=== PATIENT | female | born 1970 | race Caucasian/White ===

== ENCOUNTER 2022-03-25 13:37 | Emergency (ER) | payer SELFPAY ==
[~2022-03-25] VITALS: Ht 170.2 cm; Wt 83.9 kg
== END 2022-03-25 16:57 | disposition home or self-care (01) ==
LOC: ER 16:05
DX: R21 Rash and other nonspecific skin eruption (principal)
CPT/HCPCS: 99283

== ENCOUNTER 2022-07-27 10:24 | Inpatient (IN) | payer SELFPAY ==
[~2022-07-27] VITALS: Ht 170.2 cm; Wt 83.9 kg
[2022-07-27] MEDS ORDERED: SODIUM CHLORIDE 0.9% 1000ML 1,000 ML IV ONE (11:00)
[2022-07-27] MEDS ORDERED: FAMOTIDINE 20 MG/2 ML VIAL IV STA (11:00)
[2022-07-27] MEDS ORDERED: ONDANSETRON HCL INJ 2MG/ML 2ML 2 MG/ML VIAL IV STA (11:00)
[2022-07-27] MEDS ORDERED: ONDANSETRON HCL INJ 2MG/ML 2ML 2 MG/ML VIAL ONE (11:09)
[2022-07-27] MEDS ORDERED: SODIUM CHLORIDE 0.9% 1000ML 1,000 ML ONE (11:09)
[2022-07-27] MEDS ORDERED: FAMOTIDINE 20 MG/2 ML VIAL IV ONE (11:10)
[2022-07-27] MEDS ORDERED: ACYCLOVIR SODIUM 800 MG in SODIUM CHLORIDE 0.9% 250ML 250 ML IV SCH (11:45)
[2022-07-27] MEDS ORDERED: SODIUM CHLORIDE FLUSH 10 ML SYR INJ PRN (12:00)
[2022-07-27] MEDS ORDERED: ONDANSETRON HCL INJ 2MG/ML 2ML 2 MG/ML VIAL IV PRN (12:00)
[2022-07-27] MEDS ORDERED: SODIUM CHLORIDE 0.9% 100 ML ONE (12:14)
[2022-07-27] MEDS ORDERED: PIPERACILLIN/TAZOBACTAM 3.375 GM VIAL ONE (12:14)
[2022-07-27] MEDS ORDERED: CLONIDINE HCL 0.2 MG TAB PO ONE (12:15)
[2022-07-27] MEDS ORDERED: CLONIDINE HCL 0.1 MG TAB ONE (12:18)
[2022-07-27 13:01] VITALS: BP 132/101
[2022-07-27] MEDS ORDERED: ACETAMINOPHEN 325 MG TAB PO PRN (13:30)
[2022-07-27] MEDS ORDERED: DOCUSATE SODIUM 100 MG CAP PO PRN (13:30)
[2022-07-27] MEDS ORDERED: CLINDAMYCIN 600MG / 50ML 50 ML IV ONE (14:45)
[2022-07-27] MEDS: ACYCLOVIR SODIUM 800 MG in SODIUM CHLORIDE 0.9% 250ML 250 ML IV SCH ×2 (15:00→21:28)
[2022-07-27] MEDS ORDERED: SODIUM CHLORIDE 0.9% 250ML 250 ML ONE (15:09)
[2022-07-27 16:02] VITALS: BP 133/113
[2022-07-27 16:10] VITALS: BP 133/113
[2022-07-27] MEDS: ACETAMINOPHEN 325 MG TAB PO PRN ×2 (16:45→21:28)
[2022-07-27 16:57] LABS: HIV 1&2 AB SCREEN NON-REACTIVE (NONREACTIVE)
[2022-07-27 20:00] VITALS: BP 131/98
[2022-07-27 20:40] VITALS: BP 131/98
[2022-07-27] MEDS ORDERED: TRAMADOL HCL 50 MG TAB PO PRN (23:45)
[2022-07-28] VITALS (7 sets, daily range): BP systolic 114–153; BP diastolic 70–108
[2022-07-28] MEDS: LORATADINE 10 MG TAB PO SCH ×2 (00:29→09:12)
[2022-07-28] MEDS: GABAPENTIN 100 MG CAP PO SCH ×4 (00:29→20:51)
[2022-07-28] MEDS: METHYLPREDNISOLONE SOD SUCC 40 MG/ML VIAL 1ML IV SCH ×3 (00:30→20:50)
[2022-07-28] MEDS: ACYCLOVIR SODIUM 800 MG in SODIUM CHLORIDE 0.9% 250ML 250 ML IV SCH ×3 (03:54→20:51)
[2022-07-28] MEDS: Morphine 4mg INJECTION 4 MG/ML INJ IV PRN ×4 (04:01→19:42)
[2022-07-28 05:04] LABS: BASOPHILS % 0.4 % (0.0-1.0); EOSINOPHILS % 0.6 % (0.0-6.0); HEMATOCRIT 32.4 % (34.2-44.1); HEMOGLOBIN 10.5 g/dL (12.0-16.0); LYMPHOCYTES # (AUTO) 0.6 (1.0-3.2); LYMPHOCYTES % 8.6 % (18.0-39.1); MEAN CORPUSCULAR HEMOGLOBIN 29.6 pg (28-32); MEAN CORPUSCULAR HGB CONC 32.4 g/dL (31-35); MEAN CORPUSCULAR VOLUME 91.3 fL (81-99); MONOCYTES # (AUTO) 0.2 (0.2-0.8); MONOCYTES % 2.4 % (4.4-11.3); NEUTROPHILS # (AUTO) 6.2 (2.1-6.9); NEUTROPHILS % 87.4 % (38.7-80.0); PLATELET COUNT 316 x10e3/uL (140-360); RED BLOOD COUNT 3.55 x10e6/uL (3.6-5.1)
[2022-07-28 05:29] LABS: ANION GAP 14.8 mmol/L (8-16); CALCIUM 8.7 mg/dL (8.4-10.2); CREATININE, SERUM 1.21 mg/dL (0.57-1.11); MAGNESIUM 2.3 MG/DL (1.3-2.1); PHOSPHORUS 2.7 MG/DL (2.3-4.7); POTASSIUM 4.8 mmol/L (3.5-5.1)
[2022-07-28] MEDS ORDERED: CLINDAMYCIN PHOS 900MG/ 50ML 50 ML IV SCH ×2 (14:00→16:00)
[2022-07-28] MEDS: CLINDAMYCIN PHOS 900MG/ 50ML 50 ML IV SCH ×2 (16:00→23:04)
[2022-07-28] MEDS ORDERED: CALAMINE LOTION 4 OZ BOTTLE TP SCH (21:00)
[2022-07-29] VITALS: BP 132/98
[2022-07-29] MEDS: ACYCLOVIR SODIUM 800 MG in SODIUM CHLORIDE 0.9% 250ML 250 ML IV SCH ×3 (03:09→19:40)
[2022-07-29] MEDS: Morphine 4mg INJECTION 4 MG/ML INJ IV PRN ×2 (03:11→08:18)
[2022-07-29 04:20] VITALS: BP 130/101
[2022-07-29 04:56] LABS: BASOPHILS % 0.3 % (0.0-1.0); EOSINOPHILS % 0.1 % (0.0-6.0); HEMATOCRIT 32.4 % (34.2-44.1); HEMOGLOBIN 10.5 g/dL (12.0-16.0); LYMPHOCYTES # (AUTO) 1.2 (1.0-3.2); LYMPHOCYTES % 11.1 % (18.0-39.1); MEAN CORPUSCULAR HEMOGLOBIN 29.6 pg (28-32); MEAN CORPUSCULAR HGB CONC 32.4 g/dL (31-35); MEAN CORPUSCULAR VOLUME 91.3 fL (81-99); MONOCYTES # (AUTO) 0.3 (0.2-0.8); MONOCYTES % 2.9 % (4.4-11.3); NEUTROPHILS % 84.6 % (38.7-80.0); PLATELET COUNT 341 x10e3/uL (140-360); RED BLOOD COUNT 3.55 x10e6/uL (3.6-5.1); RED CELL DISTRIBUTION WIDTH 16.4 % (11.7-14.4)
[2022-07-29 05:11] LABS: ANION GAP 14.8 mmol/L (8-16); CALCIUM 8.8 mg/dL (8.4-10.2); CREATININE, SERUM 1.09 mg/dL (0.57-1.11); MAGNESIUM 2.5 MG/DL (1.3-2.1); PHOSPHORUS 3.2 MG/DL (2.3-4.7); POTASSIUM 4.8 mmol/L (3.5-5.1)
[2022-07-29] MEDS: GABAPENTIN 100 MG CAP PO SCH ×3 (05:16→20:49)
[2022-07-29 08:00] VITALS: BP 130/101
[2022-07-29] MEDS: CLINDAMYCIN PHOS 900MG/ 50ML 50 ML IV SCH ×3 (08:18→23:16)
[2022-07-29] MEDS: LORATADINE 10 MG TAB PO SCH (08:18)
[2022-07-29] MEDS: METHYLPREDNISOLONE SOD SUCC 40 MG/ML VIAL 1ML IV SCH ×2 (08:18→20:48)
[2022-07-29] MEDS ORDERED: LIDOCAINE HCL 1% LOCAL INJ 20 ML VIAL INJ ONE (10:30)
[2022-07-29] MEDS ORDERED: HYDROMORPHONE 1MG/1ML INJ ONE (10:54)
[2022-07-29] MEDS ORDERED: HYDROMORPHONE 1MG/1ML INJ IV ONE (11:00)
[2022-07-29] MEDS ORDERED: LIDOCAINE HCL 2% JELLY 5 ML TUBE TOP PRN (11:00)
[2022-07-29 12:05] VITALS: BP 141/114
[2022-07-29 16:00] VITALS: BP 141/100
[2022-07-29] MEDS: HYDROMORPHONE 1MG/1ML INJ IV PRN ×2 (17:00→20:50)
[2022-07-29] MEDS: HYDRALAZINE HCL 20 MG/ML VIAL IV PRN (19:41)
[2022-07-29 20:00] VITALS: BP 171/120
[2022-07-30] VITALS (8 sets, daily range): BP systolic 115–163; BP diastolic 94–118
[2022-07-30] MEDS: HYDRALAZINE HCL 20 MG/ML VIAL IV PRN (04:12)
[2022-07-30] MEDS: ACYCLOVIR SODIUM 800 MG in SODIUM CHLORIDE 0.9% 250ML 250 ML IV SCH ×3 (04:13→20:23)
[2022-07-30] MEDS: HYDROMORPHONE 1MG/1ML INJ IV PRN ×3 (04:13→20:23)
[2022-07-30] MEDS: GABAPENTIN 100 MG CAP PO SCH ×3 (04:14→22:13)
[2022-07-30] MEDS: METHYLPREDNISOLONE SOD SUCC 40 MG/ML VIAL 1ML IV SCH (11:41)
[2022-07-30] MEDS: LORATADINE 10 MG TAB PO SCH (11:42)
[2022-07-30] MEDS: CLINDAMYCIN PHOS 900MG/ 50ML 50 ML IV SCH (11:42)
[2022-07-30] MEDS ORDERED: ONDANSETRON HCL 4 MG ORAL DISINTEGRATING TAB PO PRN (11:45)
[2022-07-30] MEDS: Vancomycin IV 1 GM in SODIUM CHLORIDE 0.9% 250ML 250 ML IV SCH (14:00)
[2022-07-30] MEDS ORDERED: Vancomycin IV 1 GM in SODIUM CHLORIDE 0.9% 250ML 250 ML IV SCH (16:00)
[2022-07-31] VITALS: BP 140/102
[2022-07-31] MEDS: HYDROMORPHONE 1MG/1ML INJ IV PRN ×3 (01:12→09:52)
[2022-07-31] MEDS: Vancomycin IV 1 GM in SODIUM CHLORIDE 0.9% 250ML 250 ML IV SCH (01:13)
[2022-07-31 04:00] VITALS: BP 154/108
[2022-07-31] MEDS: ACYCLOVIR SODIUM 800 MG in SODIUM CHLORIDE 0.9% 250ML 250 ML IV SCH (04:55)
[2022-07-31] MEDS: GABAPENTIN 100 MG CAP PO SCH (05:55)
[2022-07-31 07:30] VITALS: BP 154/108
[2022-07-31 08:33] VITALS: BP 144/105
[2022-07-31] MEDS ORDERED: LIDOCAINE 4% PATCH TP SCH (09:00)
[2022-07-31] MEDS ORDERED: CLINDAMYCIN HC150 MG PO (09:26)
[2022-07-31] MEDS ORDERED: GABAPENTIN100 MG PO (09:26)
[2022-07-31] MEDS ORDERED: LORATADINE10 MG PO (09:26)
[2022-07-31] MEDS ORDERED: ULTRAM 50MG50 MG PO (09:26)
[2022-07-31] MEDS ORDERED: ACYCLOVIR800 MG PO (09:26)
[2022-07-31] MEDS: LORATADINE 10 MG TAB PO SCH (09:52)
[2022-07-31 12:01] VITALS: BP 164/118
== END 2022-07-31 12:22 | disposition home or self-care (01) | DRG 866 ==
LOC: FSED 10:32 → ERHOLD 11:51 → MED/SURG2 12:42
PROVIDERS: ADMIT Internal Medicine; ATTEND Internal Medicine
DX: B02.8 Zoster with other complications (principal); I16.1 Hypertensive emergency; L03.211 Cellulitis of face; L02.416 Cutaneous abscess of left lower limb; B02.21 Postherpetic geniculate ganglionitis; E03.9 Hypothyroidism, unspecified; I10 Essential (primary) hypertension; Z20.822 Contact with and (suspected) exposure to COVID-19; B95.62 Methicillin resistant Staphylococcus aureus infection as the cause of diseases classified elsewhere; R73.03 Prediabetes
CPT/HCPCS: 36415; 80048; 80053; 80061; 81003; 83036; 83735; 84100; 85025; 87040; 87071; 87186; 87205; 87390; 87529; 96374; 96376; 99252; 99284; G0433; G0435; J0360; J1170; J2001; J2270; J2405; J2543; J2920; J3370; J7030; J7050